=== PATIENT | female | born 1980 | race Caucasian/White ===

== ENCOUNTER 2018-08-07 10:37 | Outpatient (CLI) | payer BC ==
--- NOTE | 2018-08-07 12:58 | ULT ---
ULTRASOUND ABDOMEN COMPLETE WITH GUERRERO-SCALE AND DOPPLER COLORFLOW: INDICATIONS: Abdominal bloating, distention, and pain. TECHNIQUE: Guerrero-scale ultrasound evaluation of the liver, gallbladder, spleen, pancreas, common bile duct, kidne ys, abdominal aorta, and inferior vena cava (IVC). FINDINGS: No focal hepatic lesion or acute gallbladder pathology. There is a normal sized common duct, measuri ng 2 mm. The kidneys are unremarkable. No focal splenic pathology is seen. No ascites or additiona l significant intraabdominal pathology is demonstrated. Doppler evaluation reveals patency of the portal vein. IMPRESSION: No acute intraabdominal abnormalities are demonstrated by sonographic evaluation. POS: HORTENSIA
== END 2018-08-07 10:38 | disposition home or self-care (01) ==
LOC: ULT 10:37
PROVIDERS: ATTEND Internal Medicine Gastroenterology
DX: R14.0 Abdominal distension (gaseous) (principal); R14.3 Flatulence
CPT/HCPCS: 76700

== ENCOUNTER 2019-04-22 07:58 | Outpatient (CLI) | payer BC ==
--- NOTE | 2019-04-22 08:48 | CT ---
CT ABDOMEN AND PELVIS WITH IV CONTRAST 04/22/2019 CLINICAL INFORMATION: Bloating, flatus, and abdominal distention. Irritable bowel syndrome. COMPARISON: None. Technique: Multiple contiguous axial CT images are obtained through the abdomen and pelvis with IV contrast. Cor onal reformatted images are provided. FINDINGS: Lower Chest: within normal limits. Vessels: Abdominal aorta is normal in caliber without evidence of an aortic dissection. Abdomen: Portal vein:Patent Gallbladder: Decompressed. Liver: within normal limits. Spleen: within normal limits. Pancreas: within normal limits. Adrenals: within normal limits. Kidneys: within normal limits. Bowel: There is evidence of a small bowel intussusception involving a proximal loop of jejunum. This can be a transient finding. There is no evidence of a bowel obstruction, and the remainder of the opacified bowel is normal in caliber. Appendix: The appendix is visualized and normal in caliber. Peritoneum: No ascites or free air; no fluid collection. Mesentery and Retroperitoneum: No enlarged mesenteric or retroperitoneal lymph nodes. Abdominal Wall: There is an increased density structure seen in the midline anterior abdominal wall i n a infraumbilical location which may be along a region of scarring. Exact etiology for this area of increased density is uncertain but may be iatrogenic. Pelvis: Reproductive Organs: Low-density structures are seen in each adnexa likely due to ovarian follicles a ssociated with each ovary. There is diminished attenuation in the endometrial canal suggesting fluid which may be secondary to stage of the patient's menstrual cycle. Clinical correlation is sugge sted. Pelvis within normal limits. Bladder: within normal limits. Bones: within normal limits. IMPRESSION: 1. Increased density material seen within the midline anterior abdominal wall which is an the infraum bilical location and appears to be in the region of midline scarring. This may be iatrogenic and possibly secondary to prior postsurgical change. Clinical correlation is recommended. 2. Focal small bowel intussusception involving a proximal loop of jejunum. This can be seen as a yeager sient finding. There is no evidence of a bowel obstruction on this exam. 3. No acute findings are seen in the abdomen or pelvis.
[2019-04-22] MEDS ORDERED: ISOVUE-370 76%-LOCM 1 ML ONE (10:14)
== END 2019-04-22 07:59 | disposition home or self-care (01) ==
LOC: BICCT 07:58
PROVIDERS: ATTEND Internal Medicine Gastroenterology
DX: K58.9 Irritable bowel syndrome, unspecified (principal); R10.9 Unspecified abdominal pain; R14.3 Flatulence; R14.0 Abdominal distension (gaseous); R93.5 Abnormal findings on diagnostic imaging of other abdominal regions, including retroperitoneum
CPT/HCPCS: 74177; Q9966